=== PATIENT | female | born 1990 | race Caucasian/White ===

== ENCOUNTER 2021-06-18 05:00 | Observation (INO) | payer OTHER ==
[~2021-06-18] VITALS: Ht 160 cm; Wt 65.8 kg
[~2021-06-18 05:00] MED LIST: FLEXERIL 10 MG10 MG PO; IBUPROFEN800 MG PO; MEDROL4 MG PO
[2021-06-18 05:59] LABS: HEMOGLOBIN 11.3 gm/dl (12.3-15.3); RED BLOOD COUNT 4.1 M/UL (4.00-5.10); WHITE BLOOD COUNT 11.1 K/UL (4.5-11.0)
[2021-06-18 06:23] LABS: BUN/CREATININE RATIO 12 (0-10)
[2021-06-18] MEDS ORDERED: LEVOTHYROXINE75 MCG PO (11:26)
[2021-06-18] MEDS ORDERED: PRENATAL PLUS1 EACH PO (11:27)
[2021-06-19 05:54] LABS: HEMOGLOBIN 9.4 gm/dl (12.3-15.3); WHITE BLOOD COUNT 8.9 K/UL (4.5-11.0)
[2021-06-19 05:55] LABS: RED BLOOD COUNT 3.43 M/UL (4.00-5.10)
[2021-06-19 06:38] LABS: BUN/CREATININE RATIO 18 (0-10)
== END 2021-06-19 12:00 | disposition home or self-care (01) ==
LOC: ER1 05:00 → CDU 10:28 → CCU 13:49 → ZOBSOF 15:24 → CCU 15:24
PROVIDERS: Physician Assistant; Physician Assistant Medical; ADMIT Internal Medicine
DX: O99.891 Other specified diseases and conditions complicating pregnancy (principal); O99.282 Endocrine, nutritional and metabolic diseases complicating pregnancy, second trimester; Z20.822 Contact with and (suspected) exposure to COVID-19; Z3A.17 17 weeks gestation of pregnancy; E03.9 Hypothyroidism, unspecified; N13.30 Unspecified hydronephrosis; R31.9 Hematuria, unspecified; Z79.899 Other long term (current) drug therapy
CPT/HCPCS: 36415; 76775; 80048; 80053; 81001; 83690; 83735; 83880; 84702; 85025; 85027; 85652; 86140; 86850; 86900; 86901; 87086; 96374; 96375; 99285; G0378; J0295; J2270; U0002